=== PATIENT | male | born 1995 | race Caucasian/White ===

== ENCOUNTER 2019-07-31 18:11 | Inpatient (IN) | payer OTHER ==
[~2019-07-31] VITALS: Ht 190.5 cm; Wt 186.4 kg
[2019-07-31 18:38] VITALS: Ht 190.5 cm; Wt 186.4 kg
--- NOTE | 2019-07-31 18:48 | NUR ---
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
--- NOTE | 2019-07-31 19:13 | NUR ---
PLEASE ENTER FULL NAMES OF SOFTWARE APPLICATIONS ENGINEER/RN Patient data collected by (SOFTWARE APPLICATIONS ENGINEER): MOUNIKA PAULSON Assessment reviewed and completed by (RN): NAIF BRIAN
[2019-07-31 20:08] LABS: BASOPHIL % 0.3 % (0-2); PLATELET COUNT 287 x10^3mcL (130-400)
[2019-07-31 20:10] LABS: RED CELL DISTRIBUTION WIDTH 15.5 % (11.5-14.5)
[2019-07-31 20:26] LABS: CALCIUM 9.2 mg/dL (8.5-10.1); CARBON DIOXIDE 23.4 mmol/L (21-32); CHLORIDE SERUM 103 mmol/L (98-107); CREATININE SERUM 0.9 mg/dL (0.7-1.3); GFR1 > 60 mL/min; GLUCOSE SERUM 138 mg/dL (74-106); POTASSIUM SERUM 4.3 mmol/L (3.5-5.1); SODIUM SERUM 139 mmol/L (136-145)
[2019-07-31 20:31] LABS: ALKALINE PHOSPHATASE 158 U/L (46-116); ALT/SGPT 209 U/L (16-63); AST/SGOT 97 U/L (15-37); TOTAL PROTEIN, SERUM 8.1 g/dL (6.4-8.2)
[2019-07-31 20:34] LABS: AMYLASE 371 U/L (25-115)
[2019-07-31 20:35] LABS: BILIRUBIN TOTAL 13.4 mg/dL (0.20-1.00)
[2019-07-31 20:53] LABS: UA SPECIFIC GRAVITY >=1.030 (1.005-1.035); microscopic required? YES; urine erythrocyte 1+ (NEGATIVE)
[2019-07-31 21:04] LABS: LIPASE 4482 IU/L (73-393)
--- NOTE | 2019-07-31 21:45 | NUR ---
PT RESTING IN BED AND STATES THAT HIS PAIN HAS DECREASED FROM A 9/10 TO A 7/10. PT VITALS ARE STABLE. NO ACUTE DISTRESS NOTED. US TECH AT BEDSIDE TO PREFORM US.
--- NOTE | 2019-07-31 23:03 | NUR ---
REPORT GIVEN TO YE SEXTON TO ASSUME CARE OF PT.
[2019-07-31 23:34] LABS: CHOLESTEROL/HDL RATIO 38.2
[2019-07-31 23:55] LABS: FREE T4 1.39 ng/dL (0.76-1.46); FREE THYROXINE INDEX 3.6 ug/dL (1.4-4.5); T4(THYROXINE) 10.9 ug/dL (4.7-13.3)
[2019-08-01] VITALS (7 sets, daily range): BP systolic 132–158; BP diastolic 81–98
--- NOTE | 2019-08-01 | NUR ---
PT RECIEVED ED. AMBULATED FROM WHEELCHAIR TO BED WITH NO PROBLEM. PT COMPLAINING OF 6/10 ABD PAIN. WILL MEDICATE PER EMAR. PT ADMITTED FOR GALLSTONE AND PANCREEATITIS. A/O X4, CALM AND COOPERATIVE. PT MED/SURG, DENIES CP, NV, DIZZINESS, OR PALPATATIONS. BREATHING E/U ON RA, NO SOB. ABD SOFT AND ROUND, PT COMPLAINING OF DIARRHEA FOR PAST 5 DAYS. YELLOWING TO THE SKIN AND SCLERA NOTED. IV TO RH, CDI. BED AT LOWEST POSITION. CALL LIGHT WITHIN REACH. WILL CONTINUE TO MONITOR.
--- NOTE | 2019-08-01 | NUR ---
PT MEDICATED WITH NORCO PRN FOR ABD PAIN AT THIS TIME. WILL CONTINUE TO MONITOR. B/P STABLE. NO ACUTE DISTRESS NOTED. WILL CONTINUE TO MONITOR.
[2019-08-01 00:15] LABS: T3 TOTAL 1.19 ng/mL
--- NOTE | 2019-08-01 01:35 | NUR ---
PT COMPLAINING OF EPIGASTRIC PAIN AND BACK PAIN. VS TAKEN 124/76, HR 77, RR 20 OW SAT 98 ON RA. 5/10 PAIN SCALE. MEDICATED WITH MORPHINE 2MG IVP SLOW. GIVEN ON RT HAND, SITE NO S/S INFILTRATION. CALL LIGHT WITHIN REACHED.
[2019-08-01 06:09] LABS: AMPHETAMINE QUAL UR NONE DETECTED (See below)
--- NOTE | 2019-08-01 06:26 | NUR ---
PT COMPLAINING OF PAIN IN THE EPIGASTRIC REGION. MEDICATED WITH PRN NORCO. WILL CONTINUE TO MONITOR. NO S/S OF ACUTE DISTRESS AT THIS TIME. WILL CONTINUE TO MONITOR.
[2019-08-01 06:59] LABS: PLATELET COUNT 268 x10^3mcL (130-400)
--- NOTE | 2019-08-01 07:07 | NUR ---
PT RESTING IN BED AT THIS TIME. DENIES PAIN OR DISCOMFORT. BREATHIGN E/U ON RA. A/OX4, CALM AND COOPERATIVE. PT M/S, DENIES CP, NV, DIZZINESS, OR PALPATATIONS. PALPABLE PULSES, NO EDEMA NOTED AT THIS TIME. ABD SOFT AND ROUND, STATES SLIGHT PAIN TO EPIGASTRIC REGION ON PALPATION. PT STATES DIARRHEA LIKE STOOLS X5 DAYS. PT AMBULATORY AT BASELINE. YELLOWING OF SKIN AND SCLERA NOTED. IV TO RH, INTACT AND INFUSING. BED AT LOWEST POSITION. CALL LIGHT WITHIN REACH. WILL CONTINUE TO MONITOR.
[2019-08-01 07:24] LABS: CALCIUM 8.9 mg/dL (8.5-10.1); CARBON DIOXIDE 25.8 mmol/L (21-32); CHLORIDE SERUM 102 mmol/L (98-107); CREATININE SERUM 0.8 mg/dL (0.7-1.3); GFR1 > 60 mL/min; GLUCOSE SERUM 111 mg/dL (74-106); SODIUM SERUM 138 mmol/L (136-145)
[2019-08-01 07:36] LABS: ALBUMIN 3.5 g/dL (3.4-5.0); ALKALINE PHOSPHATASE 154 U/L (46-116); ALT/SGPT 168 U/L (16-63); AST/SGOT 89 U/L (15-37); BILIRUBIN TOTAL 11.36 mg/dL (0.20-1.00); PHOSPHOROUS 3.8 mg/dL (2.5-4.9); TOTAL PROTEIN, SERUM 7.3 g/dL (6.4-8.2)
[2019-08-01 07:52] LABS: LIPASE 1786 IU/L (73-393)
[2019-08-01 08:24] LABS: RED CELL DISTRIBUTION WIDTH 15.8 % (11.5-14.5)
--- NOTE | 2019-08-01 10:54 | NUR ---
ASSUMED CARE OF PATIENT FROM CARLIE MERAZ. PT AWAKE/ALERT, LAYING COMFORTABLY IN BED. DENIES ANY NEEDS AT THIS TIME.
--- NOTE | 2019-08-01 11:30 | NUR ---
DR MEHTA AT BEDSIDE TO SPEAK WITH PATIENT, PLANNED FOR ERCP AT 1200. PT AWARE AND AGREEABLE. INFORMED CONSENT SIGNED BY PATIENT.
--- NOTE | 2019-08-01 12:06 | NUR ---
PATIENT TAKEN DOWN TO OR VIA GUERNEY. VISITOR AT BEDSIDE.
[2019-08-01 12:10] LABS: UA SPECIFIC GRAVITY >=1.030 (1.005-1.035); microscopic required? YES; urine erythrocyte 2+ (NEGATIVE)
[2019-08-01 13:06] LABS: ATYPICAL LYMPH 1 %; BAND NEUTROPHIL 1 % (0-10); BASOPHIL 1 % (0-2); MONOCYTE 4 % (0-7); SEGMENTED NEUTROPHILS 91 % (37-75)
[2019-08-01 13:08] LABS: PLATELET MORPHOLOGY PLATELETS INCREASED; rbc morphology (normal/abnorm) NORMAL (NORMAL)
--- NOTE | 2019-08-01 14:20 | NUR ---
PT BACK FROM ERCP. SETTLED INTO ROOM WITH CALL LIGHT WITHIN REACH. VISITOR AT BEDSIDE. PT AWAKE AND TALKING, DROWSY. KEPT ON O2 @ 2L/MIN VIA NC. HX OF SLEEP APNEA WITH O2 SAT OF 99%. RECONNECTED TO IV LR ORDERED. WILL CONTINUE TO MONITOR.
--- NOTE | 2019-08-01 15:45 | NUR ---
RECEIVED PT FROM CARLIE MIMS. PT IS LAYING DOWN IN BED WITH HOB UP RESTING. PT LOOKS TO BE IN NO ACUTE DISTRESS AT THIS TIME. FAMILY MEMBER AT BEDSIDE. WILL CONTINUE TO MONITOR.
--- NOTE | 2019-08-01 17:22 | NUR ---
Discount pharmacy card and list to low cost medical clinics given to patient by David Rodriguez.
--- NOTE | 2019-08-01 18:30 | NUR ---
PT AMBULATING AROUND UNIT. PT DENIES ANY PAIN OR DIZZINESS. PT LOOKS TO BE IN NO ACUTE DISTRESS. WILL CONTINUE TO MONITOR.
--- NOTE | 2019-08-01 19:06 | NUR ---
PT IS LAYING DOWN IN BED HOB UP RESTING. PT LOOKS TO BE IN NO ACUTE DISTRESS AT THIS TIME. CALL LIGHT WITHIN REACH. WILL ENDORSE TO ONCOMING SHIFT.
--- NOTE | 2019-08-01 19:30 | NUR ---
PT RECIEVED FROM DAY NURSE. PT RESTING IN BED AT THIS TIME. DENIES PAIN OR DISCOMFORT. BREATHING E/U ON RA. ABD SOFT AND ROUND, DENIES PAIN AT THIS TIME. PT AMBULATORY AT BASELINE. YELLOWING OF SKIN NOTED AT THIS TIME. IV TO RH, INTACT AND INFUSING. BED AT LOWEST POSITION. CALL LIGHT WITHIN REACH. WILL CONTINUE TO MONITOR.
--- NOTE | 2019-08-01 21:30 | NUR ---
PT COMPLAINING OF ABD PAIN AND NAUSEA, MEDICATED WITH PRN ZOFRAN AND NORCO.
[2019-08-02 04:45] VITALS: BP 131/85
--- NOTE | 2019-08-02 04:46 | NUR ---
PT RESTING IN BED AT THIS TIME, DENIES PAIN OR DISCOMFORT. BREATHING E/U ON RA. NO S/S OF ACUTE DISTRESS AT THIS TIME. IV INTACT AND INFUSING. BED AT LOWEST POSITION. CALL LIGHT WITHIN REACH. WILL CONTINUE TO MONITOR.
--- NOTE | 2019-08-02 06:19 | NUR ---
PT RESTING IN BED AT THIS TIME. DENIES PAIN OR DISCOMFORT. BREATHING E/U ON RA. NO S/S OF ACUTE DISTRESS NOTED. ALL NEEDS AND CONCERNS ADDRESSED THIS SHIFT. BED AT LOWEST POSITION. CALL LIGHT WITHIN REACH. WILL ENDORSE TO DAY NURSE.
[2019-08-02 06:37] LABS: BASOPHIL % 0.4 % (0-2); PLATELET COUNT 277 x10^3mcL (130-400)
[2019-08-02 06:53] LABS: CARBON DIOXIDE 30.2 mmol/L (21-32); CHLORIDE SERUM 100 mmol/L (98-107); CREATININE SERUM 0.8 mg/dL (0.7-1.3); GFR1 > 60 mL/min; GLUCOSE SERUM 112 mg/dL (74-106); POTASSIUM SERUM 4.1 mmol/L (3.5-5.1); SODIUM SERUM 138 mmol/L (136-145)
[2019-08-02 07:05] LABS: BILIRUBIN DIRECT 10.85 mg/dL (0.0-0.2); TOTAL PROTEIN, SERUM 7.1 g/dL (6.4-8.2)
--- NOTE | 2019-08-02 07:05 | NUR ---
RECEIVED PT FROM NIGHT NURSE. PT IS LAYING DOWN IN BED WTIH HOB. PT LOOKS TO BE IN NO ACUTE DISTRESS AT THIS TIME AND DENIES ANY PAIN. RESPIRATIONS EVEN AND UNLABORED ON ROOM AIR. IV SITE PATENT WITH NO SIGNS OF ERYTHEMA OR SWELLING WITH IV FLUIDS INFUSING. BED IN LOWEST POSITION, CALL LIGHT WITHIN REACH. WILL CONTINUE TO MONITOR.
[2019-08-02 07:28] VITALS: BP 152/88
[2019-08-02 07:30] LABS: ALBUMIN 3.3 g/dL (3.4-5.0)
[2019-08-02 07:33] LABS: BILIRUBIN TOTAL 13.8 mg/dL (0.20-1.00)
--- NOTE | 2019-08-02 07:33 | NUR ---
PAGED DR. PRICE ABOUT PT BILI OF 13.8
--- NOTE | 2019-08-02 07:57 | NUR ---
PAGED DR. PRICE ABOUT PT BILI 13.8 FOR SECOND TIME
[2019-08-02 12:09] VITALS: BP 149/82
--- NOTE | 2019-08-02 15:12 | NUR ---
PT AMBULATING AROUND UNIT. PT LOOKS TO BE IN NO ACUTE DISTRESS AT THIS TIME. PT DENIES ANY PAIN OR DIZZINESS. WILL CONITNUE TO MONITOR.
[2019-08-02 16:21] VITALS: BP 143/92
--- NOTE | 2019-08-02 18:19 | NUR ---
PT EATING DINNER AT THIS TIME. PT STATES THAT HE IS EATING SLOWLY TO PREVENT ANY NAUSEA OR ABD PAIN. PT DENIES ANY NAUSEA OR ABD PAIN AT THIS TIME AND PT TOLERATING DIET WELL. PT LOOKS TO BE IN NO ACUTE DISTRESS AT THIS TIME. IV SITE PATENT WITH NO SIGNS OF ERYTHEMA OR SWELLING WITH IV FLUIDS INFUSING. RESPIRATIONS EVEN AND UNLABORED ON ROOM AIR. CALL LIGHT WITHIN REACH, BED IN LOWEST POSITION, WILL ENDORSE TO ONCOMING SHIFT.
--- NOTE | 2019-08-02 19:05 | NUR ---
RECEIVED PT FROM PREVIOUS SHIFT NURSE. PT AOX4. DENIES HERNANDEZ/DIZZINESS. MED SURG PT. DENIES CP/PRESSURE. DENIES SOB/DIFFICULTY BREATHING. IV TO R. HAND, INTACT AND PATENT. BED IN LOWEST POSITION. CALL LIGHT WITHIN REACH. WILL CONTINUE TO MONITOR.
[2019-08-02 21:04] VITALS: BP 147/98
--- NOTE | 2019-08-03 02:31 | NUR ---
PT RESTING IN BED. RR EVEN AND UNLABORED. IN NO ACUTE DISTRESS. CALL LIGHT WITHIN REACH. BED IN LOWEST POSITION. WILL CONTINUE TO MONITOR.
[2019-08-03 05:34] VITALS: BP 147/94
[2019-08-03 06:07] LABS: BASOPHIL % 1.6 % (0-2); PLATELET COUNT 288 x10^3mcL (130-400)
[2019-08-03 06:27] LABS: RED CELL DISTRIBUTION WIDTH 15.8 % (11.5-14.5)
[2019-08-03 07:08] LABS: ALKALINE PHOSPHATASE 145 U/L (46-116); ALT/SGPT 109 U/L (16-63); AST/SGOT 52 U/L (15-37); BILIRUBIN DIRECT 8.95 mg/dL (0.0-0.2); BILIRUBIN TOTAL 11.1 mg/dL (0.20-1.00); CALCIUM 8.8 mg/dL (8.5-10.1); CARBON DIOXIDE 27.5 mmol/L (21-32); CHLORIDE SERUM 98 mmol/L (98-107); CREATININE SERUM 0.8 mg/dL (0.7-1.3); GFR1 > 60 mL/min; GLUCOSE SERUM 111 mg/dL (74-106); PHOSPHOROUS 3.6 mg/dL (2.5-4.9); POTASSIUM SERUM 3.6 mmol/L (3.5-5.1); SODIUM SERUM 137 mmol/L (136-145); TOTAL PROTEIN, SERUM 7.1 g/dL (6.4-8.2)
[2019-08-03 07:09] LABS: ALBUMIN 3.1 g/dL (3.4-5.0)
--- NOTE | 2019-08-03 07:15 | NUR ---
RECEIVED PT FROM NIGHT NURSE. PT IS LAYING DOWN IN BED WITH HOB UP RESTING. PT LOOKS TO BE IN NO ACUTE DISTRESS AT THIS TIME AND DENIES ANY PAIN. RESPIRATIONS EVEN AND UNLABORED ON ROOM AIR. IV SITE PATENT WITH NO SIGNS OF ERYTHEMA OR SWELLING WITH IV FLUIDS INFUSING. CALL LIGHT WITHIN REACH. WILL CONTINUE TO MONITOR.
[2019-08-03 07:22] VITALS: BP 130/78
[2019-08-03 11:44] VITALS: BP 137/77
--- NOTE | 2019-08-03 13:00 | NUR ---
PT IS SITTING UP IN BED. PT DENIES ANY ABD PAIN OR NAUSEA AFTER EATING NEW DIET OF FULL LIQUID. WILL CONTINUE TO MONITOR.
--- NOTE | 2019-08-03 13:56 | NUR ---
PT IS LAYING DOWN IN BED WITH HOB UP RESTING. PT LOOKS TO BE IN NO ACUTE DISTRESS AT THIS TIME AND DENIES ANY PAIN. CALL LIGHT WITHIN REACH. WILL CONTINUE TO MONITOR.
[2019-08-03 17:20] VITALS: BP 131/64
--- NOTE | 2019-08-03 18:13 | NUR ---
PT IS SITTING UP AT THE EDGE OF THE BED. PT LOOKS TO BE IN NO ACUTE DISTRESS AND DENIES ANY ABD PAIN OR NAUSEA AFTER DINNER. RESPIRATIONS EVEN AND UNLABORED ON ROOM AIR. IV SITE PATENT WITH NO SIGNS OF ERYTHEMA OR SWELLING WITH IV FLUIDS INFUSING. CALL LIGHT WITHIN REACH. WILL ENDORSE TO ONCOMING SHIFT.
--- NOTE | 2019-08-03 19:15 | NUR ---
RECEIVED PT FROM PREVIOUS SHIFT NURSE. PT AOX4, DENIES HERNANDEZ/DIZZINESS. MED SURG PT, DENIES CP/PRESSURE. DENIES SOB/DIFFICULTY BREATHING, ON RA. IV TO R. HAND, INTACT AND PATENT. BED IN LOWEST POSITION. CALL LIGHT WITHIN REACH. BED IN LOWEST POSITION. WILL CONTINUE TO MONITOR.
[2019-08-03 19:26] VITALS: BP 134/75
--- NOTE | 2019-08-04 02:39 | NUR ---
PT RESTING IN BED. RR EVEN AND UNLABORED. IN NO ACUTE DISTRESS. CALL LIGHT WITHIN REACH. BED IN LOWEST POSITION. WILL CONTINUE TO MONITOR.
[2019-08-04 04:55] VITALS: BP 122/76
[2019-08-04 07:08] LABS: BASOPHIL % 0.3 % (0-2); PLATELET COUNT 327 x10^3mcL (130-400)
[2019-08-04 07:11] LABS: CHLORIDE SERUM 97 mmol/L (98-107); CREATININE SERUM 1.1 mg/dL (0.7-1.3); GFR1 > 60 mL/min; GLUCOSE SERUM 109 mg/dL (74-106); MAGNESIUM 2.2 mg/dL (1.8-2.4); PHOSPHOROUS 4.6 mg/dL (2.5-4.9); POTASSIUM SERUM 3.8 mmol/L (3.5-5.1); SODIUM SERUM 137 mmol/L (136-145)
[2019-08-04 07:29] LABS: RED CELL DISTRIBUTION WIDTH 15.6 % (11.5-14.5)
[2019-08-04 07:30] VITALS: BP 121/78
--- NOTE | 2019-08-04 08:02 | NUR ---
AAO TIMES 4. MED SURG. NPO FOR SURGERY. LUNGS CTA. NO SOB. O2 SAT ON RA 94%. BS'S ACTIVE TIMES 4. OBESE. AMBULATORY. BRP SELF. SKIN CDI. COOPERATIVE AND PLEASANT. REPORT GIVE TO SUDEEP FOR SURGERY TODAY, NO ORDER YET FOR SURGERY. IV SITE CDI. DENIES DISCOMFORT.
[2019-08-04 09:30] LABS: BILIRUBIN DIRECT 6.13 mg/dL (0.0-0.2); BILIRUBIN TOTAL 7.7 mg/dL (0.20-1.00); TOTAL PROTEIN, SERUM 7.1 g/dL (6.4-8.2)
[2019-08-04 13:05] VITALS: BP 121/78
--- NOTE | 2019-08-04 13:59 | NUR ---
Initial Nutrition Assessment: 236/B MARITZA WRAY HR Dx: Gallstone pancreatitis PMHx: Morbid obesity PSHx: None Labs: BG 109H, AST 52H, ALT 109H, TG 364H, LDL 159H, HDL 6L Meds: Colace, morphine, norco, zofran, zosyn Diet: NPO (surgery- lap placido), (08/03) full liquid diet, (08/02) clear liquid diet PO intake since admission: (08/03) lunch 100%, breakfast 80%, (08/02) dinner 100% Ht: 190.5 cm (75") Wt: 186 kg (409#) BMI: 51.4 kg/m2 Bed scale: 409# IBW: 196# (89 kg) %IBW: 208 UBW: 409# Age: 24/M Food Allergies: NKFA Skin: jaundiced Dawit: 21 Edema: none GI: Last BM: 07/31 Per H&P, Pt is a 24-year-old male with no significant PMH came in with complaints of abdominal pain. It started earlier this evening in the epigastric region, which is 10/10 intensity and described it as sharp and constant which radiates to the right upper back. Also reports nausea, and 1 episode of non-bilious non- bloody vomiting. Reports his last drink was 3-[address] Note (08/04): Patient was alert and oriented and denied any N/V/D/C at this time. Patient also said that his appetite is coming back. Per progress note (08/03), Pt is NPO after the midnight for poss lap cholecystectomy scheduled by Dr Ortiz. Lipase, transaminases and bilirubin is trending down. Problem with: N/V/D/C: none Problems with: Chewing: Swallowing: none Current appetite: good Recent wt change: none %wt change: n/a Vitamin/Supplement use: none Special diet at home: Regular Physical activity: sedentary Nutrition education given: [facility] handout on 'Heart healthy nutrition therapy' was provided and explained to the patient. Food-drug interactions: none Education given: n/a Estimated Nutritional Needs Based on ideal body weight (89 kg) Energy: 9942-5907 kcal/day (25-30 kcal/kg for maintenance) Protein: 89-106 g/day (1.0-1.2 g/kg for maintenance) Fluid: 4112-8295 mL/day (1 mL/kcal) Nutrition Diagnosis: 1. Morbid obesity related to increased energy intake as evidenced by BMI 51.4 kg/m2. Intervention 1. Recommend cardiac diet. 2. Diet education provided. Discussed with Dr. Luigi Cabrera. Monitor/Evaluate Goal: PO intake at least 75% of estimated needs Monitor: PO intake, Labs, GI function F/U in 3-5 days as moderate risk 08/07-
--- NOTE | 2019-08-04 13:59 | NUR ---
1. Recommend cardiac diet. 2. Diet education provided. Discussed with Dr. Luigi Cabrera.
--- NOTE | 2019-08-04 16:06 | NUR ---
GAVE DISCHARGE INSTRUCTIONS, NO PRESCRIPTION. REMOVED SALINE LOCK ANGIO INTACT. HE VERBALIZED "I UNDERSTAND" TO ALL INSTRUCTIONS.
== END 2019-08-04 16:59 | disposition home or self-care (01) | DRG 444 ==
LOC: ED 18:11 → MU 22:45
PROVIDERS: Emergency Medicine; Internal Medicine Gastroenterology; Surgery; ADMIT Internal Medicine
PROC: 0F798DZ Dilation of Common Bile Duct with Intraluminal Device, Via Natural or Artificial Opening Endoscopic (ICD-10-PCS; principal; 2019-08-01 12:15)
PROC: 0F778ZZ Dilation of Common Hepatic Duct, Via Natural or Artificial Opening Endoscopic (ICD-10-PCS; 2019-08-01 12:15)
PROC: BF131ZZ Fluoroscopy of Gallbladder and Bile Ducts using Low Osmolar Contrast (ICD-10-PCS; 2019-08-01 12:15)
PROC: 0DB68ZX Excision of Stomach, Via Natural or Artificial Opening Endoscopic, Diagnostic (ICD-10-PCS; 2019-08-01 12:15)
DX: K80.70 Calculus of gallbladder and bile duct without cholecystitis without obstruction (principal); K85.10 Biliary acute pancreatitis without necrosis or infection; Z68.43 Body mass index [BMI] 50.0-59.9, adult; E66.01 Morbid (severe) obesity due to excess calories; E78.5 Hyperlipidemia, unspecified; K42.9 Umbilical hernia without obstruction or gangrene; K57.30 Diverticulosis of large intestine without perforation or abscess without bleeding; K76.0 Fatty (change of) liver, not elsewhere classified; E88.89 Other specified metabolic disorders; Z87.891 Personal history of nicotine dependence; Z72.89 Other problems related to lifestyle
CPT/HCPCS: 43262; 83880; 84439; 90658; C1769; C2625; G0378; J1610; J2250; J2270; J2405; J2543; J3490; J7030; J7120; Q0092; Q0162; Q9967